=== PATIENT | female | born 1990 | race Caucasian/White ===

== ENCOUNTER 2019-01-29 12:36 | Emergency (ER) | payer OTHER ==
[~2019-01-29] VITALS: Ht 152.4 cm; Wt 83.9 kg
[2019-01-29 12:54] VITALS: Ht 152.4 cm; Wt 83.9 kg
[2019-01-29 15:12] VITALS: BP 118/69
== END 2019-01-29 15:12 | disposition home or self-care (01) ==
LOC: ED 12:36
DX: S93.402A Sprain of unspecified ligament of left ankle, initial encounter (principal); M25.562 Pain in left knee; M25.561 Pain in right knee; R42 Dizziness and giddiness; R07.89 Other chest pain; X50.1XXA Overexertion from prolonged static or awkward postures, initial encounter; Y93.89 Activity, other specified; Y92.89 Other specified places as the place of occurrence of the external cause; Y99.8 Other external cause status
CPT/HCPCS: Q0092